=== PATIENT | male | born 1980 | race Two or more races ===

== ENCOUNTER 2022-05-02 16:44 | Emergency (ER) | payer SELFPAY ==
[~2022-05-02] VITALS: Ht 172.7 cm; Wt 100.0 kg
[2022-05-02] MEDS ORDERED: ondansetron/PF 4mg/2ml inj IV ONE (22:40)
[2022-05-02] MEDS ORDERED: normal saline 1000ML IV soln IVB ONE (22:40)
[2022-05-02] MEDS ORDERED: famotidine/PF 10 mg/ml inj IV ONE (22:40)
[2022-05-02] MEDS ORDERED: thiamine 100mg/ml 2ml inj. IV ONE (22:40)
[2022-05-02] MEDS ORDERED: folic acid 1mg/0.2ml inj IV ONE (22:40)
[2022-05-02 23:03] LABS: ETHANOL < 0.010 GM/DL (0.0-0.010); LIPASE 279 U/L (73-393)
[2022-05-02] MEDS ORDERED: mag hydrox/Alum hydrox/simeth 30ml oral suspension PO ONE (23:10)
[2022-05-02] MEDS ORDERED: sucralfate 1 gm tablet PO ONE (23:10)
[2022-05-02] MEDS ORDERED: LIDOcaine Viscous 15ml cup MM ONE (23:10)
[2022-05-03 01:21] VITALS: BP 152/90
== END 2022-05-03 01:39 | disposition home or self-care (01) ==
LOC: ER 16:46 → EDBD 16:46 → ER 05-03 01:39
DX: K29.20 Alcoholic gastritis without bleeding (principal); R07.89 Other chest pain; Z72.89 Other problems related to lifestyle
CPT/HCPCS: 36415; 71045; 80320; 83690; 93005; 96361; 96374; 96375; 99285; J2405; J3411; J3490; J7030

== ENCOUNTER 2022-05-12 19:19 | Emergency (ER) | payer MEDICAID, OTHER ==
[~2022-05-12] VITALS: Ht 175.3 cm; Wt 90.9 kg
[2022-05-12 21:13] VITALS: BP 123/72
[2022-05-13] MEDS ORDERED: acetaminophen 325mg tablet PO ONE (00:15)
== END 2022-05-13 01:30 | disposition home or self-care (01) ==
LOC: ER 19:20
DX: T65.893A Toxic effect of other specified substances, assault, initial encounter (principal); R20.8 Other disturbances of skin sensation; Z88.0 Allergy status to penicillin; Z59.00 Homelessness unspecified; Z56.0 Unemployment, unspecified; Y92.89 Other specified places as the place of occurrence of the external cause
CPT/HCPCS: 99283